=== PATIENT | male | born 1950 | race Native Hawaiian/Other Pacific Islander ===

== ENCOUNTER 2019-06-03 16:20 | Emergency (ER) | payer OTHER ==
[~2019-06-03] VITALS: Ht 177.8 cm; Wt 81.6 kg
[2019-06-03 16:29] VITALS: BP 175/82; TEMP 97.5
[2019-06-03 17:12] LABS: PLATELET COUNT 227 K/uL (142-355)
[2019-06-03 17:16] LABS: POTASSIUM 4.2 mmol/L (3.6-5.2)
== END 2019-06-03 19:08 | disposition home or self-care (01) ==
LOC: ED 16:20
PROVIDERS: Family Medicine
DX: N13.2 Hydronephrosis with renal and ureteral calculous obstruction (principal); N23 Unspecified renal colic
CPT/HCPCS: 80053; 81000; 85027; 96360; 96375; 99284; J1885; J2405